=== PATIENT | female | born 1970 | race Caucasian/White ===

== ENCOUNTER 2016-12-07 18:50 | Emergency (ER) | payer BC ==
--- NOTE | 2016-12-07 19:31 | ER Document Report ---
ED Medical Screen (RME) - General Chief Complaint: Headache Stated Complaint: HEADACHE Notes: This 46-year-old female patient comes in from complaining of severe migraine headache with nausea and vomiting started this morning. It is typical of her migraine headache although she has not had one in quite some time. Brief exam shows tenderness to the left posterior cervical muscles and scalp muscles. She remains quite nauseous and dry heaves. I have greeted and performed a rapid initial assessment of this patient. A comprehensive ED assessment and evaluation of the patient, analysis of test results and completion of the medical decision making process will be conducted by additional ED providers. At this time her head still hurts, but she feels the nausea is controlled enough she can take some by mouth medications. We will add Compazine and Benadryl to her medicines. Unfortunately there are no beds in the back and neck cannot get anyone to start an IV or give her IV medications up front so that is the reason for this piece- meal approach to treating her migraine headache. TRAVEL OUTSIDE OF THE [place] IN LAST 30 DAYS: No - Related Data Allergies/Adverse Reactions: acetaminophen [From Percocet] Allergy (Verified 12/07/16 19:18) ciprofloxacin [From Cipro] Allergy (Verified 12/07/16 19:18) iodine Allergy (Verified 12/07/16 19:18) metronidazole [From Metrogel] Allergy (Verified 12/07/16 19:18) oxycodone [From Percocet] Allergy (Verified 12/07/16 19:18) Past Medical History Renal/ Medical History: Denies: Hx Peritoneal Dialysis
[2016-12-07] MEDS ORDERED: ONDANSETRON 4 MG TAB.RAPDIS PO ONE ×2 (19:33→19:48)
[2016-12-07] MEDS ORDERED: KETOROLAC TROMETHAMINE 60 MG/2 ML SDV IM ONE ×2 (19:33→19:48)
[2016-12-07] MEDS ORDERED: PROCHLORPERAZINE EDISYLATE INJ 10 MG/2 ML VIAL IV ONE (19:44)
[2016-12-07] MEDS ORDERED: DIPHENHYDRAMINE HCL 50 MG/ML VIAL IV ONE (19:44)
[2016-12-07] MEDS ORDERED: KETOROLAC TROMETHAMINE INJ/PF 30 MG/1 ML SDV IV ONE (19:45)
[2016-12-07] MEDS ORDERED: NORMAL SALINE 1000 ML 1,000 ML IV ONE (19:45)
[2016-12-07] MEDS ORDERED: PROCHLORPERAZINE MALEATE 10 MG TABLET PO ONE (20:35)
[2016-12-07] MEDS ORDERED: DIPHENHYDRAMINE HCL 50 MG CAPSULE PO ONE (20:35)
--- NOTE | 2016-12-07 22:20 | ER Document Report ---
HPI - HPI Patient complains to provider of: migraine Onset: Other Onset/Duration: Gone Pain Level: Denies Context: Patient states that she developed a migraine headache today to the left side of her head with nausea and vomiting. Patient states she typically has migraines similar to this in the past but is visiting here from out of town and did not have any of her usual headache medications. Patient denies any head injury, fever, recent illness. Patient states that she was seen by the triage physician and given medication to treat her headache and her headache symptoms have now resolved. Patient states she is ready to go home. Associated Symptoms: Headache, Vomiting. denies: Fever Exacerbated by: Denies Relieved by: Denies Similar symptoms previously: Yes Recently seen / treated by doctor: No - ROS ROS below otherwise negative: Yes Systems Reviewed and Negative: Yes All other systems reviewed and negative - CONSTITUTIONAL Constitutional: DENIES: Fever, Chills - NEURO Neurology: REPORTS: Headache. DENIES: Weakness, Vision blurred - GASTROINTESTINAL Gastrointestinal: REPORTS: Nausea, Patient vomiting. DENIES: Abdominal Pain - MUSCULOSKELETAL Musculoskeletal: DENIES: Extremity pain, Back Pain, Neck Pain - DERM Skin Color: Normal Skin Problems: None Past Medical History - General Information source: Patient - Social History Smoking Status: Current Every Day Smoker Frequency of alcohol use: None Drug Abuse: None Lives with: Family Family History: Reviewed & Not Pertinent Patient has suicidal ideation: No Patient has homicidal ideation: No Neurological Medical History: Reports: Hx Migraine Renal/ Medical History: Denies: Hx Peritoneal Dialysis Past Surgical History: Reports: Hx Appendectomy, Hx Hysterectomy, Hx Orthopedic Surgery Vertical Provider Document - CONSTITUTIONAL Agree With Documented VS: Yes Exam Limitations: No Limitations General Appearance: WD/WN, No Apparent Distress - INFECTION CONTROL TRAVEL OUTSIDE OF THE [place] IN LAST 30 DAYS: No - HEENT HEENT: Atraumatic, Normal ENT Exam, Normocephalic, PERRLA Notes: extraocular movements intact PERRL - NECK Neck: Normal Inspection, Supple Notes: No meningismus - RESPIRATORY Respiratory: Breath Sounds Normal, No Respiratory Distress, Chest Non-Tender - CARDIOVASCULAR Cardiovascular: Regular Rate, Regular Rhythm, No Murmur - GI/ABDOMEN Gastrointestinal: Abdomen Non-Tender - BACK Back: Normal Inspection. negative: CVA Tenderness-Right, CVA Tenderness-Left Notes: No spinal tenderness - MUSCULOSKELETAL/EXTREMETIES Musculoskeletal/Extremeties: MAEW, FROM, Non-Tender - NEURO Level of Consciousness: Awake, Alert, Appropriate Motor/Sensory: No Motor Deficit Notes: No focal neurologic deficit, normal gait, normal rapid alternating movements, normal finger-nose, normal heel munguia, face symmetric - DERM Integumentary: Warm, Dry, No Rash Course - Re-evaluation Re-evalutation: 12/07/16 22:18 Patient reports that headache pain has resolved and is requesting to go home. Discussed worsening signs or symptoms or patient to return immediately for. Patient verbalized understanding and agrees plan of care. Discharge - Discharge Clinical Impression: Hx of migraines Headache Qualifiers: Headache type: unspecified Headache chronicity pattern: acute headache Intractability: not intractable Qualified Code(s): R51 - Headache Nausea & vomiting Qualifiers: Vomiting type: unspecified Vomiting Intractability: non-intractable Qualified Code(s): R11.2 - Nausea with vomiting, unspecified Condition: Stable Disposition: HOME, SELF-CARE Instructions: Toradol Injection ([facility]), Intravenous Compazine for Headaches ([facility] ), Use of Diphenhydramine, Vomiting ([facility]) Additional Instructions: Return immediately for any new or worsening symptoms Followup with your primary care provider, call tomorrow to make a followup appointment Stay well hydrated Prescriptions: Promethazine HCl [Phenergan 25 mg Tablet] 25 mg PO Q6H PRN #15 tablet PRN Reason: Referrals: [facility] [Provider Group] - Follow up as needed
[2016-12-08 06:14] VITALS: BP 146/90
== END 2016-12-07 22:40 | disposition home or self-care (01) ==
LOC: ER 18:50
DX: R51 Headache (principal); R11.2 Nausea with vomiting, unspecified; F17.200 Nicotine dependence, unspecified, uncomplicated; Z90.710 Acquired absence of both cervix and uterus
CPT/HCPCS: 99283; 96372; 96374; 96375; J1200; J1885; S0119; J0780